=== PATIENT | male | born 1960 | race Caucasian/White ===

== ENCOUNTER 2020-04-24 18:05 | Emergency (ER) | payer BC, SELFPAY ==
[2020-04-24 18:09] VITALS: BP 188/115; PULSE 77; RESP 18; TEMP 36.9; O2SAT 100
--- NOTE | 2020-04-24 18:44 | ED.WOUNDLAC ---
HPI - Wound/Laceration General Chief Complaint: Wound/Laceration Stated Complaint: arm laceration Time Seen by Provider: 04/24/20 18:07 Source: patient and family Mode of arrival: ambulatory Limitations: no limitations History of Present Illness HPI narrative: Patient is a 59-year-old male who presents with left arm laceration noting that he fell on a sharp object lacerating the proximal forearm patient notes tetanus up-to-date patient denies any radicular symptoms or paresthesias and notes that his tetanus is up-to-date in the last year Related Data Home Medications Medication Instructions Recorded Confirmed cholecalciferol (vitamin D3) 125 5,000 unit PO DAILY 12/04/19 mcg (5,000 unit) tablet Allergies Allergy/AdvReac Type Severity Reaction Status Date / Time IRVIN Inhibitors Allergy Unknown Unknown Verified 04/24/20 18:16 metformin Allergy Unknown Unknown Verified 04/24/20 18:16 Review of Systems Review of Systems: All systems reviewed & are unremarkable except as noted in HPI and below PMFSH Past Medical History Medical History (Updated 04/24/20 @ 18:48 by Adán Lewis PA-C) Essential (primary) hypertension Social History Social History Smoking status: Never smoker Alcohol intake: never Gender identity (if verbalized by the patient): Male Exam Narrative: Exam Narrative: GENERAL: Well-appearing, well-nourished, and in no acute distress. HEAD: Normocephalic, atraumatic. EYES: PERRLA and EOMI. ENT: Nares clear, no rhinorrhea or epistaxis. Mucous membranes moist. EXTREMITIES: Normal range of motion. No edema. 5 cm laceration of the proximal left forearm extending into the deep tissues SKIN: Warm, dry, no rash. NEURO: No focal deficits. Alert and oriented x3. Neurovascularly intact PSYCH: Normal mood and affect. Course Course Emergency Course: patient in the room in no distress aware of case findings treatment plan and diagnosis agreeing to follow-up Vital Signs Vital signs: Vital Signs Temperature 98.4 F 04/24/20 18:09 Pulse Rate 77 04/24/20 18:09 Respiratory Rate 18 04/24/20 18:09 Blood Pressure 188/115 H 04/24/20 18:09 Pulse Oximetry 100 06/19/20 18:09 Temperature 98.4 F 04/24/20 18:09 Pulse Rate 77 04/24/20 18:09 Respiratory Rate 18 04/24/20 18:09 Blood Pressure 188/115 H 04/24/20 18:09 Pulse Oximetry 100 04/24/20 18:09 Procedures Laceration Laceration 1: Date: 04/24/20 Time: 18:46 Site: upper extremity Side (If applicable): left Size (cm): 5 Description: linear Depth: simple, single layer Local Anesthetic: lidocaine 1% and with epi Pre-repair: wound explored, irrigated and irrigated extensively ====== Skin Level ====== Skin layer closed with: megan Number of sutures: 11 ====== Subcutaneous Layer ====== ====== Muscle Layer ====== ====== Tendon Layer ====== Dressing: Nonadhesive dressing antibiotic ointment 4 x 4 and Coban placed post procedure Neurovascularly intact pre-and post procedure MDM - Wound/Laceration MDM Narrative Medical decision making narrative: Patients injury or pain is consistent with musculoskeletal etiology. No signs of neurological or vascular compromise on exam. Compartments and tisues are soft without signs of compartment syndrome. Pain is felt appropriate for further evaluation on an outpatient basis. Discharge Plan Discharge Clinical Impression: Laceration Patient Disposition: Home, Self-Care Condition: Stable Instructions: Antibiotic Form, Laceration (ED) Additional Instructions: Keep wound clean and dry. Do not soak, take baths, or swim until wound is completely healed. If any signs of infection such as redness, swelling, increasing pain, drainage of purulent discharge, streaks up your extremity develop, seek medical attention immediat
[2020-04-24 18:56] VITALS: BP 180/108; PULSE 71; RESP 20; O2SAT 97
== END 2020-04-24 18:57 | disposition home or self-care (01) ==
PROVIDERS: Emergency Provider Emergency Medicine; PCP Internal Medicine
DX: S51.812A Laceration without foreign body of left forearm, initial encounter (principal); I10 Essential (primary) hypertension; W01.119A Fall on same level from slipping, tripping and stumbling with subsequent striking against unspecified sharp object, initial encounter
CPT/HCPCS: 12002; 99282

== ENCOUNTER 2022-02-04 12:34 | Outpatient (CLI) | payer BC, SELFPAY ==
--- NOTE | ~2022-02-04 | MM_ITS ---
EXAMINATION: MM diagnostic mammo unilat RT HISTORY: Right breast enlargement TECHNIQUE: Full field digital craniocaudal and mediolateral oblique views of the right breast were ob tained. Mediolateral oblique view of the left breast was obtained for comparison CAD analysis was sub mitted and interpreted. COMPARISON: 12/09/2011 BREAST PARENCHYMAL COMPOSITION: There are scattered areas of fibroglandular density. FINDINGS: There is flame-shaped subareolar density of the right breast which has developed since the comparison examination. Mild gynecomastia is noted on the left. IMPRESSION: 1. Mammographic findings consistent with asymmetric gynecomastia, right greater than left. Clinical f ollow-up is recommended. BI-RADS Category 2: Benign finding(s). Reviewed, dictated and finalized at location A. IMPRESSION: 1. Mammographic findings consistent with asymmetric gynecomastia, right greater than left. Clinical follow-up is recommended. BI-RADS Category 2: Benign finding(s).
== END 2022-02-04 12:35 | disposition home or self-care (01) ==
LOC: ANHIMG 12:35
PROVIDERS: PCP Internal Medicine; Visit Provider Nurse Practitioner
DX: N63.0 Unspecified lump in unspecified breast (principal)
CPT/HCPCS: 77065